=== PATIENT | male | born 1975 | race Caucasian/White ===

== ENCOUNTER 2019-11-22 06:09 | Emergency (ER) | payer OTHER ==
[~2019-11-22] VITALS: Ht 167.6 cm; Wt 90.7 kg
[~2019-11-22 06:09] MED LIST: ADVAIR HFA 230M12 GM INH; FOLGARD TABLET1 EAC1 PO; LISINOPRIL10 MG PO; METHOTREXATE 22.5 MG PO; SIMVASTATIN40 MG PO
[2019-11-22 07:04] LABS: ABSOLUTE BASOPHILS 0.1 thou/uL (0.0-0.2); ABSOLUTE EOSINOPHILS 0.2 thou/uL (0.0-0.7); ABSOLUTE MONOCYTES 1.1 thou/uL (0.0-1.2); ABSOLUTE NEUTROPHILS 7.2 thou/uL (1.6-8.1); EOSINOPHILS 2.2 %; HEMATOCRIT 44.3 % (42.0-52.0); HEMOGLOBIN 14.9 gm/dL (14.0-18.0); LYMPHOCYTES 18.9 %; MCH 31.3 pg (26.0-34.0); MCHC 33.5 g/dL (28.0-37.0); MCV 93.5 fL (80.0-100.0); MONOCYTES 10.2 %; MPV 7.5 fl. (7.2-11.1); NUCLEATED RBCS 0 /100WBC; PLATELET COUNT* 365 thou/uL (150-400); POLYS 67.7 %; RBC 4.74 mil/uL (4.50-6.00); RDW-CV 13.9 % (10.5-14.5); WBC 10.7 thou/uL (4.0-11.0)
[2019-11-22 07:13] LABS: CALCIUM 8.6 mg/dL (8.5-10.1); CREATININE 1.3 mg/dL (0.6-1.3); POTASSIUM 4.3 mmol/L (3.5-5.1)
[2019-11-22 07:17] LABS: ALBUMIN 3.7 g/dL (3.4-5.0); TOTAL BILIRUBIN 0.4 mg/dL (<0.1-1.0); TOTAL PROTEIN 7.8 g/dL (6.4-8.2)
[2019-11-22 07:24] LABS: INR 0.9; PROTIME 9.8 Seconds (9.20-11.50)
[2019-11-22] MEDS ORDERED: ZPAK PO (09:15)
[2019-11-22] MEDS ORDERED: NORCO 5-325 TA1 EAC2 PO (09:15)
[2019-11-22 09:58] VITALS: BP 118/79
--- NOTE | 2019-11-22 11:21 | EKG ---
[place] [address] ELECTROCARDIOGRAM REPORT Name: KENDRICKDANIEL Gamaliel Room: [facility]#: [id number] Admission: 11/22/19 Attend Phys: Discharge: 11/22/19 Date of : 73 Date of Service: 11/22/19614 Report #: [id number] THIS REPORT FOR: //name// [facility] ED Test Date: 2019-11-22 Test Time: 06:15:15 Pat Name: DANIEL MARKS Department: Room: Gender: [place]: : 1975 Requested By: Natalia Ivy Order Number: [id number] MD: Robert Davis Measurements Intervals [place] Rate: 99 P: 64 SC: 133 QRS: 53 QRSD: 86 T: 56 QT: 322 QTc: 414 Interpretive Statements Sinus rhythm Probable left atrial enlargement Low voltage, extremity leads Baseline wander in lead(s) II,aVR No previous ECG available for comparison Electronically Signed On 11-22-2019 11:20:55 CDT by Robert Davis [email or web address] <ELECTRONICALLY SIGNED> By: Robert Davis MD, FAC 11/22/19 1120 0615 Robert Davis MD, [facility] /EPI
== END 2019-11-22 09:58 | disposition home or self-care (01) ==
LOC: M.ERS 06:09
PROVIDERS: Personal Emergency Response Attendant
DX: R07.89 Other chest pain (principal); R07.81 Pleurodynia; J44.1 Chronic obstructive pulmonary disease with (acute) exacerbation; I10 Essential (primary) hypertension; E78.00 Pure hypercholesterolemia, unspecified; Z79.899 Other long term (current) drug therapy; Z88.6 Allergy status to analgesic agent

== ENCOUNTER 2019-11-29 19:21 | Emergency (ER) | payer OTHER ==
[~2019-11-29 19:21] MED LIST changes: +NORCO 5-325 TA1 EAC2 PO; +ZPAK PO
== END 2019-11-29 19:45 | disposition left against medical advice (07) ==
LOC: M.ERS 19:21
DX: R07.81 Pleurodynia (principal); Z53.21 Procedure and treatment not carried out due to patient leaving prior to being seen by health care provider